=== PATIENT | male | born 1965 | race Hispanic/Latino ===

== ENCOUNTER 2019-12-04 09:08 | Outpatient (CLI) | payer BC ==
--- NOTE | 2019-12-04 11:05 | ULT ---
ULTRASOUND ABDOMEN: Date: 12/04/2019 HISTORY: Elevated LFTs. FINDINGS: The liver demonstrates increased echogenicity without focal mass or intrahepatic ductal dilatation. T he liver measures 20.6 cm in length. No gallstones, gallbladder wall thickening, or pericholecystic f luid is seen. The spleen, pancreas, kidneys, and visualized portions of the aorta and IVC appear norm al. The common duct measures 4.0 mm in diameter. No free fluid is seen. IMPRESSION: 1. Fatty liver. 2. No evidence of cholelithiasis. POS: AH
== END 2019-12-04 09:09 | disposition home or self-care (01) ==
LOC: BICULT 09:08
PROVIDERS: ATTEND Nurse Practitioner Family
DX: R74.8 Abnormal levels of other serum enzymes (principal); F10.10 Alcohol abuse, uncomplicated; K76.0 Fatty (change of) liver, not elsewhere classified
CPT/HCPCS: 93975